=== PATIENT | male | born 1955 | race Caucasian/White ===

== ENCOUNTER 2021-01-10 13:04 | Emergency (ER) | payer MEDICARE ==
[2021-01-10] MEDS ORDERED: CEPHALEXIN500 MG PO (17:04)
== END 2021-01-10 17:19 | disposition home or self-care (01) ==
LOC: ER1 13:04
DX: S01.311A Laceration without foreign body of right ear, initial encounter (principal); W26.9XXA Contact with unspecified sharp object(s), initial encounter; Z23 Encounter for immunization; Y93.89 Activity, other specified; Y92.009 Unspecified place in unspecified non-institutional (private) residence as the place of occurrence of the external cause
CPT/HCPCS: 12013; 90471; 90715; 96372; 99282; J0690

== ENCOUNTER → 2022-05-09 | Outpatient (CLI) | payer MEDICARE ==
[~2022-05-09] MED LIST: CEPHALEXIN500 MG PO
== END ==
LOC: KOH-I 12:23
DX: M06.4 Inflammatory polyarthropathy (principal); M19.071 Primary osteoarthritis, right ankle and foot; M19.041 Primary osteoarthritis, right hand; M19.042 Primary osteoarthritis, left hand
CPT/HCPCS: 73130; 73630